=== PATIENT | male | born 1980 | race Two or more races ===

== ENCOUNTER 2017-09-13 05:13 | Emergency (ER) | payer SELFPAY ==
[2017-09-13] MEDS ORDERED: NS 1000 ML 1,000 ML ONE (05:21)
[2017-09-13] MEDS ORDERED: ANCEF VIAL 1 GM 1 GM in NS 100 ML IV + SPIKE MINIBAG* 100 ML IV STA (05:34)
[2017-09-13] MEDS ORDERED: ADACEL TDaP IM ONE (05:35)
[2017-09-13] MEDS ORDERED: ANCEF VIAL 1 GM ONE (05:35)
[2017-09-13] MEDS ORDERED: NS 100 ML IV + SPIKE MINIBAG* 100 ML IV ONE (05:37)
[2017-09-13 05:39] VITALS: BMI 30.9
[2017-09-13] MEDS ORDERED: NEOSPORIN OINT ONE (06:02)
[2017-09-13 06:19] LABS: BASOPHILS % (AUTO) 0.6 % (0.2-1.0); EOSINOPHILS # (AUTO) 0.2 x10^3/uL (0.0-0.2); EOSINOPHILS % (AUTO) 2.7 % (0.9-2.9); HEMATOCRIT 35.4 % (42.0-54.0); HEMOGLOBIN 12.3 g/dL (13.5-18.0); LYMPHOCYTES # (AUTO) 2.9 X10^3/uL (1.3-2.9); LYMPHOCYTES % (AUTO) 47.8 % (21.0-51.0); MEAN CORPUSCULAR HEMOGLOBIN 31.2 pg (27.0-34.0); MEAN CORPUSCULAR HGB CONC 34.7 g/dL (33.0-35.0); MEAN PLATELET VOLUME 7.1 fL (7.4-11.0); MONOCYTES # (AUTO) 0.4 x10^3/uL (0.3-0.8); MONOCYTES % (AUTO) 6.9 % (0.0-13.0); NEUTROPHILS # (AUTO) 2.5 x10^3/uL (2.2-4.8); PLATELET COUNT 297 X10^3/uL (150.0-450.0); RED BLOOD COUNT 3.93 X10^6/uL (4.7-6.0); RED CELL DISTRIBUTION WIDTH 12.1 % (11.6-16.5)
--- NOTE | 2017-09-13 06:35 | DR.GENAD ---
HPI - PCP Primary Care Physician: KAREN - HPI Comment HPI Comment: HISTORY BELOW. - Complaint/Symptoms Chief Complaint Doctors Comments: LACERATION RT FOREARM SUSTAIN ON DOOR WHEN HIT WAS CUT ON DOOR. BLEEDING A LOT. TD NOT UTD. Chief Complaint:: LACERATION TO RIGHT ARM - Nurses notes reviewed Nurses Notes Review: Yes - Source History Provided: Friend - Mode of Arrival Mode of Arrival: Ambulatory - Timing Onset of Chief Complaint: 09/13/17 Came on: Suddenly - Duration Duration: Constant Duration: Minutes - Severity Severity: Moderate PMH - PMH Past Medical History: No Past Surgical History: No - Family History History of Family Medical Conditions: No - Social History Does patient currently use any type of tobacco product: No Have you used tobacco products in the last 12 months: No Type of Tobacco Use: None Does any household member use tobacco: No Alcohol Use: None Do you use any recreational Drugs:: No Lives With: Family Lives Where: Home - infectious screening In the last 2 months have you had wt loss of >10#?: NO Have you had fever, night sweats or hemotysis?: No Have you traveled outside the country in the last 6 months?: No Isolation: Standard ROS - Review of Systems Constitutional: No Symptoms Reported Eyes: No Symptoms Reported ENTM: No Symptoms Reported Respiratoy: No Symptoms Reported Cardiovascular: No Symptoms Reported Gastrointestinal/Abdominal: No Symptoms Reported Genitourinary: No Symptoms Reported Neurological: No Symptoms Reported Musculoskeletal: Muscle Pain, Right, Forearm Integumentary: Other (LAC RT FOREARM). negative: Change in Hair/Nails Hematologic/Lymphatic: Easy Bleeding Endocrine: negative: Flushing All Other Systems: Reviewed and Negative PE - Vital Signs Vitals: Temperature 98.3 F Pulse Rate [Left Brachial] 68 Pulse Rate 101 Respiratory Rate 22 Blood Pressure [Left Arm] 102/57 Blood Pressure 135/74 O2 Sat by Pulse Oximetry 96 - General Limitations: Language Barrier General Appearance: Alert - Head Head Exam: Normal Inspection - Eyes Eye exam: Normal Appearance - ENT ENT Exam: Normal External Ear Exam External Ear Exam: Normal External Inspection TM/Canal Exam: Bilateral Normal Nose Exam: Normal Nose Exam Mouth Exam: Normal Inspection Throat Exam: Normal Inspection - Neck Neck Exam: Trachea Midline - Chest Chest Inspection: Normal Inspection - Respiratory Respiratory Exam: Normal Lung Sounds Bilat Respiratory Exam: Bilateral Clear to Auscultation - Cardiovascular Cardiovascular Exam: Regular Rate, Normal Rhythm, Normal Heart Sounds - Abdominal Exam Abdominal Exam: Normal Bowel Sounds, Soft. negative: Tenderness - Extremities Extremities Exam: Tenderness (4CM AND 3CM LAC RT FOREARM) - Back Back Exam: Normal Inspection - Neurologic Neurological Exam: Alert, Oriented X3 - Psychiatric Psychiatric Exam: Normal Mood - Skin Skin Exam: Erythema MDM - Additional Information Additional Information Obtained From: Family - Differential Diagnosis Differential Diagnosis: LAC RT FOREARM. CONTUSION RT FOREARM. Course - Treatment Treatment: SEE ORDERS. NS 1L AND ANCEF 1GM IN ED. - Reevaluation 1st: Improved - Education/Counseling Education/Counseling: Patient, Family, Education Educated On: Treatment, Diagnosis, Needs for Follow Up ROR - Labs Reviewed Laboratory Results Reviewed?: Yes Result Diagrams: 09/13/17 06:08 Laboratory: WBC 6.0 X10^3/uL (3.6-10.0) 09/13/17 06:08 RBC 3.93 X10^6/uL (4.7-6.0) L 09/13/17 06:08 Hgb 12.3 g/dL (13.5-18.0) L 09/13/17 06:08 Hct 35.4 % (42.0-54.0) L 09/13/17 06:08 MCV 90.0 fL (80.0-100.0) 09/13/17 06:08 MCH 31.2 pg (27.0-34.0) 09/13/17 06:08 MCHC 34.7 g/dL (33.0-35.0) 09/13/17 06:08 RDW 12.1 % (11.6-16.5) 09/13/17 06:08 Plt Count 297 X10^3/uL (150.0-450.0) 09/13/17 06:08 MPV 7.1 fL (7.4-11.0) L 09/13/17 06:08 Neut % 42.0 % (42.0-75.0) 09/13/17 06:08 Lymph % 47.8 % (21.0-51.0) 09/13/17 06:08 [place] % 6.9 % (0.0-13.0) 09/13/17 06:08 Eos % 2.7 % (0.9-2.9) 09/13/17 06:08 Baso % 0.6 % (0.2-1.0) 09/13/17 06:08 Neut # 2.5 x10^3/uL (2.2-4.8) 09/13/17 06:08 Lymph # 2.9 X10^3/uL (1.3-2.9) 09/13/17 06:08 [place] # 0.4 x10^3/uL (0.3-0.8) 09/13/17 06:08 Eos # 0.2 x10^3/uL (0.0-0.2) 09/13/17 06:08 Baso # 0.0 X10^3/uL (0.0-0.1) 09/13/17 06:08 Absolute Nucleated RBC 0.0 /100WBC 09/13/17 06:08 Procedures - Laceration/Wound Repair Arm Wound Length (cm): 4 (ALSO 2.5CM) Wound's Depth, Shape: Linear Wound Explored: no foreign body removed Betadine Prep?: Yes Anesthesia: 1% Lidocaine w/ Epi Volume Anesthetic (ccs): 10 Wound Repaired With: sutures Suture Size/Type: 3:0, Ethilion Number of Sutures: 21 Layer Closure?: Yes Deep Layer Suture Size/Type: 3:0, Vicryl Number Deep Layer Sutures: 3 Sterile Dressing Applied?: Yes Splint Applied?: No Sling Applied?: No - Diagnosis Discharge Problem: Laceration of forearm, right, Contusion of right forearm - Discharge Plan Condition: Stable Prescriptions: Cephalexin [KEFLEX CAP 500 MG *] 500 mg PO TID #30 cap Ketorolac Tromethamine [Toradol Tab] 10 mg PO Q8H PRN #15 tab PRN Reason: Pain Ranitidine HCl [ZANTAC TAB 150 MG *] 150 mg PO BID #60 tab - Follow ups/Referrals Follow ups/Referrals: [facility],None [Primary Care Provider] - 3 days LISETH MUJICA [STAFF PHYSICIAN] - 3 days - Instructions Instructions: Laceration Care, Adult, [id number] Additional Instructions: RETURN TO ED IF WORSE. SUTURE OUT IN 10 DAYS.
[2017-09-13 06:58] VITALS: BP 102/57
== END 2017-09-13 07:36 | disposition home or self-care (01) ==
LOC: ER 05:13
PROC: 0XQ8XZZ Repair Right Upper Arm, External Approach (ICD-10-PCS; principal; 2017-09-13)
DX: S51.811A Laceration without foreign body of right forearm, initial encounter (principal); S50.11XA Contusion of right forearm, initial encounter; W45.8XXA Other foreign body or object entering through skin, initial encounter; Y92.9 Unspecified place or not applicable
CPT/HCPCS: 12002; 36415; 85025; 96365; 96374; 99282; 99283; 99284; A4222; J0690